=== PATIENT | female | born 1935 | race Caucasian/White ===

== ENCOUNTER 2017-11-16 18:09 | Emergency (ER) | payer MEDICARE ==
--- NOTE | 2017-11-16 18:24 | Emergency Department Record ---
History of Present Illness - General Chief complaint: Flank Pain Stated complaint: flank pain Time Seen by Provider: 11/16/17 18:19 Source: Patient Mode of Arrival: Ambulatory Limitations: No limitations - History of Present Illness Initial comments: 82 yo female presents to ED for evaluation of sudden-onset flank pain symptoms that began approximately 6 hours ago. Patient denies injury, fevers, chills, nausea, vomiting, urinary symptoms, or rash to the affected area. Patient reports position changes worsen her symptoms. Patient reports taking Tylenol 1000 mg for her pain symptoms without significant improvement. MD Complaint: Other (flank pain) Onset/Timin -: Hour(s) Radiation: Non-radiating Severity: Moderate Quality: Aching Consistency: Constant Improves with: Other (remaining still) Worsens with: Other (Position changes) Patient : No Associated Symptoms: Denies other symptoms - Related Data Sexually active: No Previous Rx's Medication Instructions Recorded Cephalexin [Keflex] 500 mg PO TID #21 cap 11/16/17 Allergies Allergy/AdvReac Type Severity Reaction Status Date / Time No Known Drug Allergies Allergy Verified 11/16/17 18:23 Review of Systems Constitutional: Denies: Chills, Fever, Malaise, Night sweats Eyes: Denies: Eye discharge, Eye pain ENT: Denies: Congestion, Ear pain, Epistaxis Respiratory: Denies: Cough, Dyspnea Cardiovascular: Denies: Chest pain, Dyspnea on exertion Endocrine: Denies: Fatigue, Heat or cold intolerance Gastrointestinal: Denies: Abdominal pain, Nausea, Vomiting Genitourinary: Denies: Incontinence, Retention Musculoskeletal: Reports: Back pain. Denies: Arthralgia Skin: Denies: Bruising, Change in color Neurological: Denies: Abnormal gait, Confusion, Headache, Seizure Psychiatric: Denies: Anxiety Hematological/Lymphatic: Denies: Anemia, Blood Clots Physical Exam - General General Appearance: Alert, Oriented x3, Cooperative, Moderate distress Limitations: No limitations - Head Head exam: Atraumatic, Normocephalic, Normal inspection Head exam detail: negative: Abrasion, Contusion, Carroll's sign, General tenderness, Hematoma, Laceration - Eye Eye exam: Normal appearance. negative: Conjunctival injection, Periorbital swelling, Periorbital tenderness, Scleral icterus - ENT Ear exam: negative: Auricular hematoma, Auricular trauma Nasal Exam: negative: Active bleeding, Discharge, Dried blood, Foreign body Mouth exam: negative: Drooling, Laceration, Muffled voice, Tongue elevation - Neck Neck exam: Normal inspection. negative: Meningismus, Tenderness - Respiratory Respiratory exam: Normal lung sounds bilaterally. negative: Rales, Respiratory distress, Rhonchi, Stridor - Cardiovascular Cardiovascular Exam: Regular rate, Normal rhythm, Normal heart sounds - GI/Abdominal GI/Abdominal exam: Soft. negative: Rebound, Rigid, Tenderness - Rectal Rectal exam: Deferred - exam: Deferred - Extremities Extremities exam: Normal inspection. negative: Pedal edema, Tenderness - Back Back exam: Reports: CVA tenderness (L), Paraspinal tenderness (Left upper lumbar paraspinal tenderness on examination). Denies: CVA tenderness (R) - Neurological Neurological exam: Alert, Normal gait, Oriented X3 - Psychiatric Psychiatric exam: Normal affect, Normal mood - Skin Skin exam: Normal color. negative: Abrasion Type of lesion: negative: abrasion Course - Reevaluation(s) Reevaluation #1: 11/16/17 19:02 UA reviewed: RBC 0-2 WBC 16-20 Bacteria 2+ Epithelial 0-2 Reevaluation #2: 11/16/17 19:15 Laboratory studies were reviewed and are grossly unremarkable for an acute process with the exception of the patient's urine infection. Reevaluation #3: 11/16/17 21:43 CT Abdomen and Pelvis: Subacute burst fracture T12 with retropulsion of fragments into the canal causing moderate spinal stenosis Adynamic ileus Colonic diverticulosis Cholelithiasis 3.5 mm nodule RLL Patient was updated on her results, reports that she fell 3 weeks ago resulting in injury Patient was seen in [facility] with negative radiographs. CT Brain/facial bones/cervical spine addeded for further evaluation. [facility] contacted for transfer. Reevaluation #4: 11/16/17 21:51 [facility] contacted, report that they do not accept trauma or ED-ED patients. They recommend transfer to the closest community trauma center for further evaluation. [facility] contacted for transfer. Reevaluation #5: 11/16/17 22:06 Case was discussed with Dr. Canela and Dr. Jama, will accept patient for trauma evaluation. 11/16/17 22:42 CT Brain: No acute process CT Cervical Spine:No acute fracture or subluxation CT Maxillofacial Bones: No acute fracture Medical Decision Making - Lab Data Result diagrams: 11/16/17 18:56 11/16/17 18:56 Critical Care Time Critical Care Time: Yes Total Critical Care Time: 45 Critical Care Time: Diagnosis and treatment of T12 burst fracture, further Trauma evaluation, evaluation for pyelonephritis/infected calculus, treatment for possible pyelonephritis, initiation of transfer to [facility] for Trauma/neurosurgery evaluation. Disposition Disposition: Transfer Clinical Impression: Pyelonephritis, T12 burst fracture Disposition: Acute Care Hospital Transfer Transfer To: [facility] Reason For Transfer: Neursurgery/Trauma evaluation Accepting Physician: Esperanza Time Discussed w/Accepting Physician: 21:54 Condition: (2) Stable Prescriptions: Cephalexin [Keflex] 500 mg PO TID #21 cap Forms: Patient Portal Access Time of Disposition: 21:54 Quality - Quality Measures Quality Measures: N/A - Blood Pressure Screening Does Patient Have Any of the Following: No Blood Pressure Classification: Hypertensive Reading Systolic Measurement: 177 Diastolic Measurement: 62 Screening for High Blood Pressure: < First Hypertensive BP, F/U Documented > [ [id number]] First Hypertensive Follow-up Interventions: Referral to alternative/primary care provider.
[2017-11-16 18:53] LABS: URINE APPEARANCE CLEAR; URINE BILIRUBIN NEGATIVE (NEGATIVE); URINE BLOOD NEGATIVE (NEGATIVE); URINE COLOR YELLOW; URINE GLUCOSE (UA) NEGATIVE (NEGATIVE); URINE KETONE TRACE (NEGATIVE); URINE LEUKOCYTE ESTERASE TRACE (NEGATIVE); URINE NITRITE POSITIVE (NEGATIVE); URINE PROTEIN NEGATIVE (NEGATIVE)
[2017-11-16 18:58] LABS: BASO % 0.9 % (0-6); EOS % 3.4 % (0-6); GRAN % 60.8 % (47-80); HEMATOCRIT 41.5 % (35.0-47.0); HEMOGLOBIN 13.6 gm/dl (11.6-16.0); LYMPH % 26.3 % (16-45); MEAN CELL VOLUME 92.8 fl (81-97); MEAN CORPUSCULAR HEMOGLOBIN 30.4 pg (27-33); MEAN CORPUSCULAR HGB CONC 32.8 g/dl (32-36); MEAN PLATELET VOLUME 9.4 fl (7.4-10.4); MONO % 8.6 % (0-9); PLATELET COUNT 356 K/uL (130-400); RED BLOOD COUNT 4.47 M/uL (3.80-5.40); RED CELL DISTRIBUTION WIDTH 13.6 % (11.5-14.5); WHITE BLOOD COUNT W/O DIFF 8.4 K/uL (4.2-12.2)
[2017-11-16 19:00] LABS: URINE BACTERIA 2+; URINE EPITHELIAL CELLS 0 - 2 (FEW); URINE RBC 0 - 2 (NONE SEEN); URINE WBC 16 - 20 (0-2/hpf)
[2017-11-16 19:09] LABS: CREATININE 1.2 mg/dL (0.5-0.9)
[2017-11-16 19:10] LABS: BILIRUBIN,TOTAL 0.2 mg/dL (0.2-1.0); TOTAL PROTEIN 7.3 g/dL (6.6-8.7)
[2017-11-16 19:15] LABS: ALB/GLOB RATIO 1.4 (1.1-1.8); ALBUMIN 4.2 g/dL (4.0-5.0)
[2017-11-16] MEDS ORDERED: CEFTRIAXONE SODIUM 1 GM in 0.9 % SODIUM CHLORIDE 100ML 100 ML IVPB ONE (19:46)
[2017-11-16] MEDS ORDERED: ONDANSETRON HCL IV 4 MG/2 ML VIAL IVP ONE (22:54)
[2017-11-16] MEDS ORDERED: FENTANYL PF 100MCG/2ML VIAL IVP ONE (22:54)
[2017-11-16] MEDS ORDERED: 0.9 % SODIUM CHLORIDE 1000ML 500 ML IV SCH (23:00)
--- NOTE | 2017-11-20 11:29 | CT SCAN REPORT ---
EXAM: CT OF THE ABDOMEN AND PELVIS WITHOUT CONTRAST HISTORY: LEFT SIDED FLANK PAIN, FELL TWO WEEKS AGO. TECHNIQUE: Axial CT scan of the abdomen and pelvis was performed without oral or IV contrast. A preliminary report was provided by [facility]. Comparison: No prior CT abdomen and pelvis with which to compare. FINDINGS: Numerous large gallstones are seen within the gallbladder consistent with cholelithiasis. No adjacent inflammatory type changes are seen to suggest acute cholecystitis. No intrarenal calculi or hydronephrosis identified on either side. No hydroureter is seen on either side as ell. Although nondilated, the ureters are reasonably well followed throughout the retroperitoneum and pelvis with no ureteral calculus seen on either side and no bladder calculus evident. Evaluation of the bowel and viscera is quite limited without oral or IV contrast. Given this limitation, no definite hepatic, splenic, adrenal, pancreatic, or renal mass identified. There is a small hiatal hernia present. Slight prominence of the uterine fundus measuring about 6 cm in both AP and transverse diameters. No obvious focal uterine mas identified although CT, particularly without IV contrast, is quite limited for evaluation of the uterus. If clinically warranted, follow-up pelvic ultrasound might be useful for further assessment. There is a suggestion of a small pedunculated leiomyoma along the right side of the uterine anteroinferiorly. Mild diverticulosis in the colon with no diverticulitis evident. The appendix is visualized and appears negative with no appendicitis identified. There is a small, approximately 3.8 mm nodule in the right lower lobe seen on image 9 of 199. Follow-up chest CT in six months time suggested to confirm a stable appearance. No free intraperitoneal air or free intraperitoneal fluid evident. There are six lumbar type vertebra present. There is moderate compression of the superior end plate of the body of L1 with some retropulsion of the superior end plate of the body of L1 posteriorly into the spinal canal by approximately 4.7 mm. This results in mild central stenosis at the level of the superior end plate of the body of L1. When comparison is made with the lumbar spine plain film AP and lateral series of 10/15/17, a definite fracture is not identified at that time although a lateral view centered at the thoracolumbar junction was not obtained at that time which limits evaluation of the superior aspect of the lumbar spine in the lateral projection by plain film technique. Slight ballooning of the superior and inferior end plates of T12, L1 and L2 on the plain films would all be consistent with osteoporosis. On the CT today, no extension of the compression fracture of the superior end plate of L1 into the posterior elements is evident. There is apparent advanced degenerative disk disease at the T12-L1 interspace which is difficult to recognize on the plain film study of 10/15/17 as well. There is also degenerative disk disease at the lumbosacral interspace. There is no appreciable paraspinal hematoma at the L1 level today. No fracture elsewhere in the lumbar spine evident. IMPRESSION: 1. THERE IS A MODERATE COMPRESSION FRACTURE OF THE SUPERIOR END PLATE OF THE BODY OF L1 WITH SIX LUMBAR TYPE VERTEBRA PRESENT. MILD RETROPULSION OF THE SUPERIOR END PLATE OF THE BODY OF L1 RESULTING IN MILD CENTRAL STENOSIS AT THE LEVEL OF THE SUPERIOR END PLATE OF THE BODY OF L1. 2. PROMINENT DEGENERATIVE DISK DISEASE AT THE T12-L1 INTERSPACE AND LESS SO AT THE L6-S1 INTERSPACE. 3. CHOLELITHIASIS. NO ADDITIONAL FINDINGS OF ACUTE CHOLECYSTITIS EVIDENT. 4. MILD COLONIC DIVERTICULOSIS, BUT NO DIVERTICULITIS EVIDENT. 5. NO URINARY TRACT CALCULI OR HYDRONEPHROSIS EVIDENT. 6. PROMINENT UTERINE FUNDUS SUSPICIOUS FOR LEIOMYOMATOUS INVOLVEMENT, PROBABLY WITH A SMALL PEDUNCULATED LEIOMYOMA ANTEROINFERIORLY ON THE RIGHT. 7. SMALL INDETERMINATE NODULE RIGHT LUNG BASE. FOLLOW-UP CHEST CT IN SIX MONTHS TIME IS SUGGESTED. JOB NUMBER: [id number] MTDD
--- NOTE | 2017-11-20 12:29 | CT SCAN REPORT ---
EXAM: HEAD CT WITHOUT CONTRAST HISTORY: PATIENT FELL THREE WEEKS AGO. TECHNIQUE: Axial CT scan of the head was performed without IV contrast. A preliminary report was provided by [facility]. Comparison: No prior head CT with which to compare. Encounter: Initial. FINDINGS: No definite acute intracranial hemorrhage identified. No focal mass effect or midline shift apparent. Mild generalized atrophy. Mild chronic appearing deep white matter changes, nonspecific, but likely representing some chronic small vessel deep white matter ischemic disease. No definite acute infarct identified. No depressed calvarial fracture evident. There may be a small osteoma arising from the inner table of the right frontal bone and from the outer table of the right frontal bone as well. Note is made of a small low attenuation focus inferiorly in the right cerebellar hemisphere probably representing a tiny chronic focus of infarction. IMPRESSION: 1. NO DEFINITE ACUTE INTRACRANIAL HEMORRHAGE OR FOCAL MASS EFFECT EVIDENT. 2. 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 JOB NUMBER: [id number] MTDD
--- NOTE | 2017-11-20 12:36 | CT SCAN REPORT ---
EXAM: CERVICAL SPINE CT WITHOUT CONTRAST HISTORY: PATIENT FELL ABOUT THREE WEEKS AGO. TECHNIQUE: Axial CT scan of the cervical spine was performed without IV contrast. A preliminary report was provided by [facility]. Comparison: No prior cervical study with which to compare. Encounter: Initial. FINDINGS: Some apical pleural thickening is present bilaterally. No definite cervical spine fracture identified. No prevertebral soft tissue swelling evident. Loss of the normal cervical lordosis likely due to positioning or spasm. Prominent degenerative change at the odontoid-anterior arch of C1 articulation. Narrowing of the fifth and sixth cervical interspaces as well with associated hypertrophic spurring. Multilevel facet joint arthropathy with fusion of the left C2-C3 facet articulation. Multilevel foraminal stenosis seen in the cervical spine. Multilevel mild central spinal stenosis as well. IMPRESSION: 1. NO DEFINITE FRACTURE OR PREVERTEBRAL SOFT TISSUE SWELLING SEEN IN THE CERVICAL SPINE. 2. LOSS OF LORDOSIS LIKELY DUE TO POSITIONING OR SPASM. 3. MULTILEVEL DEGENERATIVE CHANGE IN THE CERVICAL SPINE. JOB NUMBER: [id number] MTDD
--- NOTE | 2017-11-20 12:42 | CT SCAN REPORT ---
EXAM: MAXILLOFACIAL BONE CT WITHOUT CONTRAST HISTORY: PATIENT FELL THREE WEEKS AGO. TECHNIQUE: Axial CT scan of the facial bones were performed without IV contrast. A preliminary report was provided by [facility]. Comparison: No prior facial bone CT with which to compare. Encounter: Initial. FINDINGS: The paranasal sinuses appear clear with no air fluid levels evident. The visualized mastoids also appear clear. There is some artifact from metallic dental work incidentally noted. The patient is probably postop bilateral cataract surgery. 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 No definite fracture of the facial bones identified. Some degenerative change at the odontoid-anterior arch of C1 articulation evident. IMPRESSION: NO DEFINITE FRACTURE OF THE FACIAL BONES IDENTIFIED. THE PARANASAL SINUSES APPEAR CLEAR. JOB NUMBER: [id number] MTDD
== END 2017-11-16 23:55 | disposition short-term general hospital (02) ==
LOC: ER 18:09
DX: S22.081A Stable burst fracture of T11-T12 vertebra, initial encounter for closed fracture (principal); N20.9 Urinary calculus, unspecified; K80.20 Calculus of gallbladder without cholecystitis without obstruction; K57.90 Diverticulosis of intestine, part unspecified, without perforation or abscess without bleeding; K56.0 Paralytic ileus; R91.1 Solitary pulmonary nodule; W19.XXXA Unspecified fall, initial encounter
CPT/HCPCS: 99291 ×2; 96365; 96375; 85025; 80053; 81001; 72125; 70450; 70486; 74176; J2405; J3010; J7030